=== PATIENT | female | born 1970 | race Caucasian/White ===

== ENCOUNTER 2016-10-30 20:51 | Emergency (ER) | payer BC, OTHER ==
[2016-10-30 21:32] VITALS: BP 129/89
[2016-10-30] MEDS ORDERED: Ketorolac 30 MG/ML SDV IM ONE (21:43)
--- NOTE | 2016-10-30 21:48 | EDM.PDOC ---
ED HPI GENERAL MEDICAL PROBLEM - General Chief Complaint: Back Pain or Injury Stated Complaint: back pain [id number] Time Seen by Provider: 10/30/16 21:44 Source of Information: Reports: Patient History Limitations: Reports: No Limitations - History of Present Illness INITIAL COMMENTS - FREE TEXT/NARRATIVE: strain low back last week been to [facility] was doing fine, tonight only reached out for bag of chips and sharp pain into her low back without going down her legs. 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 ED EXAM,LOWER BACK PAIN/INJURY - Physical Exam Exam: See Below Exam Limited By: No Limitations General Appearance: Alert, WD/WN, Mild Distress, Other (LBP) Ears: Hearing Grossly Normal Throat/Mouth: Normal Voice, No Airway Compromise Head: Atraumatic Neck: Non-Tender, Full Range of Motion Respiratory/Chest: No Respiratory Distress Cardiovascular: Regular Rate, Rhythm GI/Abdominal: Soft, Non-Tender Back Exam: Muscle Spasm, Paraspinal Tenderness, Other (bilat LS pararvert without sciatica, gait limited to pain) Neurological: Alert, No Motor/Sensory Deficits, Oriented x 3 Psychiatric: Tearful Skin Exam: Warm, Dry, Normal Color Lymphatic: No Adenopathy Course - Vital Signs Last Recorded V/S: Last Vital Signs Temp 36.8 C 10/30/16 21:05 Pulse 86 10/30/16 21:05 Resp 16 10/30/16 21:05 BP 129/89 10/30/16 21:05 Pulse Ox 97 10/30/16 21:05 - Orders/Labs/Meds Orders: Active Orders 24 hr Category Date Time Status Orphenadrine [Norflex] Med 10/30/16 23:00 Active 60 mg IM Q12H Medication Orders Orphenadrine Citrate (Norflex) 60 mg IM Q12H [facility] Last Admin: 10/30/16 22:59 Dose: 60 mg Meds: Medications Generic Name Dose Route Start Last Admin Trade Name Freq PRN Reason Stop Dose Admin Orphenadrine Citrate 60 mg 10/30/16 23:00 10/30/16 22:59 Norflex IM 60 mg Q12H [facility] Administration Discontinued Medications Generic Name Dose Route Start Last Admin Trade Name Freq PRN Reason Stop Dose Admin Butorphanol Tartrate 2 mg 10/30/16 22:14 10/30/16 22:22 Stadol IM 10/30/16 22:15 2 mg ONETIME ONE Administration Ketorolac Tromethamine 30 mg 10/30/16 21:43 10/30/16 21:52 Toradol IM 10/30/16 21:44 30 mg ONETIME ONE Administration Promethazine HCl 25 mg 10/30/16 22:14 10/30/16 22:22 Phenergan IM 10/30/16 22:15 25 mg ONETIME ONE Administration - Re-Assessments/Exams Free Text/Narrative Re-Assessment/Exam: 10/30/16 23:37 re-exam s/p IM Rx = much better now. Departure - Departure Time of Disposition: 23:37 Disposition: Home, Self-Care 01 Condition: Good Clinical Impression: Lumbosacral dysfunction - Discharge Information Instructions: Muscle Strain, [id number] Forms: ED Department Discharge Additional Instructions: 1) avoid bending lifting straining 2) try ice or heat to sore areas 3) follow up at clinic or recheck as needed rx given; flexeril 10mg bid prn x 12 vicodin 5/325mg bid prn x 12 - My Orders Last 24 Hours: My Active Orders 10/30/16 23:00 Orphenadrine [Norflex] 60 mg IM Q12H - Assessment/Plan Last 24 Hours: My Active Orders 10/30/16 23:00 Orphenadrine [Norflex] 60 mg IM Q12H
[2016-10-30] MEDS ORDERED: Promethazine 25 MG/ML SDV IM ONE (22:14)
[2016-10-30] MEDS ORDERED: Butorphanol 2 MG/ML SDV IM ONE (22:14)
[2016-10-30] MEDS ORDERED: Acetaminophen/HYDROcodone 325-10 MG Tab ONE (23:42)
== END 2016-10-30 23:55 | disposition home or self-care (01) ==
LOC: DL.ED 20:51
DX: M53.87 Other specified dorsopathies, lumbosacral region (principal); F41.9 Anxiety disorder, unspecified; F32.9 Major depressive disorder, single episode, unspecified; F17.210 Nicotine dependence, cigarettes, uncomplicated; Z79.899 Other long term (current) drug therapy; Z90.710 Acquired absence of both cervix and uterus
CPT/HCPCS: 96372; 99283; J0595; J1885; J2360; J2550

== ENCOUNTER 2017-03-09 17:06 | Emergency (ER) | payer OTHER ==
--- NOTE | 2017-03-09 17:14 | EDM.PDOCBH ---
<Arvind Jones - Last Filed: 03/09/17 19:00> ED HPI GENERAL MEDICAL PROBLEM - General Chief Complaint: Behavioral/Psych Stated Complaint: SUICIDAL [id number] Time Seen by Provider: 03/09/17 17:13 Source of Information: Reports: Patient, Family, Old Records, RN, RN Notes Reviewed History Limitations: Reports: No Limitations - History of Present Illness INITIAL COMMENTS - FREE TEXT/NARRATIVE: Arrives from home by POV with c/o suicidal thoughts and plan (overdose). Pt reports a long Hx of severe depression and prior suicidal thoughts requiring inpt. psychiatric hospitalization, last inpt. stay approx. 2 years ago. Pt reports multiple stress sources including currently going through a divorce, 2 teenage sons, financial problems, and job stress. She recently quit smoking and started Chantix. She called her psychiatrist today and he told her to stop Chantix and go to the ER if she was feeling suicidal. Onset: Gradual Duration: Week(s): (2-3), Constant, Getting Worse Severity: Severe Improves with: Reports: None Worsens with: Reports: None Associated Symptoms: Reports: No Other Symptoms - Related Data Allergies Allergy/AdvReac Type Severity Reaction Status Date / Time No Known Allergies Allergy Verified 03/09/17 17:14 Home Meds: Home Meds ALPRAZolam [Alprazolam] 1 tab PO BID PRN 10/30/16 [History] Ibuprofen [Motrin] 600 mg PO Q8H PRN 10/30/16 [History] PARoxetine HCl [Paroxetine HCl] 1 tab PO DAILY 10/30/16 [History] Varenicline Tartrate [Chantix] 1 tab PO ASDIRECTED 03/09/17 [History] Past Medical History - Past Health History Medical/Surgical History: Denies 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 Musculoskeletal History: Reports: Back Pain, Chronic Psychiatric History: Reports: Anxiety, Depression, Psych Hospitalization(s), Suicidal Ideation - Past Surgical History Female Surgical History: Reports: Hysterectomy Social & Family History - Family History Family Medical History: Noncontributory - Tobacco Use Smoking Status *Q: Current Every Day Smoker Years of Tobacco use: 20 Packs/Tins Daily: 0.5 Second Hand Smoke Exposure: Yes - Caffeine Use Caffeine Use: Reports: Coffee, Soda - Recreational Drug Use Recreational Drug Use: No - Living Situation & Occupation Living situation: Reports: (currently ), with Family Occupation: Employed ED ROS GENERAL - Review of Systems Review Of Systems: ROS reveals no pertinent complaints other than HPI. ED EXAM, BEHAVIORAL HEALTH - Physical Exam Exam: See Below Exam Limited By: No Limitations General Appearance: Alert, WD/WN, No Apparent Distress, Anxious, Other (tearful) Eye Exam: Bilateral Eye: EOMI, Normal Inspection, PERRL Ears: Normal External Exam, Hearing Grossly Normal Nose: Normal Inspection Throat/Mouth: Normal Inspection, Normal Lips, Normal Voice, No Airway Compromise Head: Atraumatic, Normocephalic Neck: Normal Inspection, Supple, Non-Tender, Full Range of Motion Respiratory/Chest: No Respiratory Distress, Lungs Clear, Normal Breath Sounds, No Accessory Muscle Use, Chest Non-Tender Cardiovascular: Normal Peripheral Pulses, Regular Rate, Rhythm, No Edema, No Gallop, No JVD, No Murmur, No Rub GI/Abdominal: Normal Bowel Sounds, Soft, Non-Tender (Female) Exam: Deferred Rectal (Female) Exam: Deferred Back Exam: Normal Inspection Extremities: Normal Inspection Neurological: Alert, Normal Mood/Affect, CN II-XII Intact, Normal Cognition, Normal Gait, No Motor/Sensory Deficits, Oriented x 3 Psychiatric: Depressed Mood, Flat Affect, Tearful, Suicidal Plan, Suicidal Thoughts. No: Homicidal Thoughts, Buddhist Delusions, Tangential Thoughts, Auditory Hallucinations, Visual Hallucinations, Grandiose Thoughts, Paranoid Thoughts, Threatening Behavior Skin Exam: Warm, Dry, Intact, Normal color, No rash COURSE, BEHAVIORAL HEALTH COMP - Course Vital Signs: Last Vital Signs Temp 36.6 C 03/09/17 17:12 Pulse 62 03/09/17 17:12 Resp 16 03/09/17 17:12 BP 144/95 H 03/09/17 17:12 Pulse Ox 100 03/09/17 17:12 Orders, Labs, Meds: Active Orders 24 hr Category Date Time Status ACETAMINOPHEN [CHEM] Stat Lab 03/09/17 17:14 Ordered CBC WITH AUTO DIFF [HEME] Stat Lab 03/09/17 17:14 Ordered COMPREHENSIVE METABOLIC PN,CMP [CHEM] Stat Lab 03/09/17 17:14 Ordered DRUG SCREEN URINE BIORAD [URCHEM] Stat Lab 03/09/17 17:14 Uncollected Suicide Precautions [OM.PC] Routine Oth 03/09/17 17:16 Ordered Laboratory Tests 03/09/17 03/09/17 03/09/17 Range/Units 17:23 17:23 17:23 WBC (5.0-10.0) 10^3/uL RBC (4.2-5.4) 10^6/uL Hgb (12.0-16.0) g/dL Hct (37.0-47.0) % MCV (80-100) fL MCH (27.0-34.0) pg MCHC (33.0-35.0) g/dL Plt Count (150-450) 10^3/uL Neut % (Auto) (42.2-75.2) % Lymph % (Auto) (20.5-50.1) % [place] % (Auto) (2-8) % Eos % (Auto) (1.0-3.0) % Baso % (Auto) (0.0-1.0) % Sodium (135-145) mmol/L Potassium (3.6-5.0) mmol/L Chloride (101-111) mmol/L Carbon Dioxide (21.0-31.0) mmol/L Anion Gap BUN (7-18) mg/dL Creatinine (0.6-1.3) mg/dL Est Cr Clr Drug Dosing mL/min Estimated GFR (MDRD) BUN/Creatinine Ratio Glucose (74-105) mg/dL Calcium (8.4-10.2) mg/dl Magnesium (1.8-2.5) mg/dL Total Bilirubin (0.2-1.0) mg/dL AST (10-42) IU/L ALT (10-60) IU/L Alkaline Phosphatase (42-121) IU/L Total Protein (6.7-8.2) g/dl Albumin (3.2-5.5) g/dl Globulin Albumin/Globulin Ratio TSH, Ultra Sensitive (0.45-5.33) uIu/mL Urine Color Light yellow (YELLOW) Urine Appearance Slightly cloudy (CLEAR) Urine pH 6.0 (5.0-9.0) Ur Specific [place] 1.010 (1.005-1.030) Urine Protein Negative (NEGATIVE) Urine Glucose (UA) Negative (NEGATIVE) Urine Ketones Negative (NEGATIVE) Urine Occult Blood Small H (NEGATIVE) Urine Nitrite Negative (NEGATIVE) Urine Bilirubin Negative (NEGATIVE) Urine Urobilinogen 0.2 (0.2-1.0) mg/dL Ur Leukocyte Esterase Negative (NEGATIVE) Urine RBC 0-5 /HPF Urine WBC 0-5 (0-5/HPF) /HPF Ur Epithelial Cells Moderate H /HPF Urine Bacteria Few (0-FEW/HPF) /HPF Urine Mucus Rare /LPF Urine HCG, Qual Negative Salicylates Urine Opiates Screen Negative (NEGATIVE) Ur Oxycodone Screen Negative (NEGATIVE) Urine Methadone Screen Negative (NEGATIVE) Acetaminophen Ur Barbiturates Screen Negative (NEGATIVE) U Tricyclic Antidepress Negative (NEGATIVE) Ur Phencyclidine Scrn Negative (NEGATIVE) Ur Amphetamine Screen Negative (NEGATIVE) U Methamphetamines Scrn Negative (NEGATIVE) Urine MDMA Screen Negative (NEGATIVE) U Benzodiazepines Scrn Negative (NEGATIVE) Urine Cocaine Screen Negative (NEGATIVE) U Marijuana (THC) Screen Negative (NEGATIVE) Ethyl Alcohol mg/dL 03/09/17 03/09/17 03/09/17 Range/Units 17:29 17:29 17:29 WBC 8.9 (5.0-10.0) 10^3/uL RBC 4.75 (4.2-5.4) 10^6/uL Hgb 14.0 (12.0-16.0) g/dL Hct 41.2 (37.0-47.0) % MCV 86.7 (80-100) fL MCH 29.5 (27.0-34.0) pg MCHC 34.0 (33.0-35.0) g/dL Plt Count 282 (150-450) 10^3/uL Neut % (Auto) 59.6 (42.2-75.2) % Lymph % (Auto) 28.4 (20.5-50.1) % [place] % (Auto) 8.8 H (2-8) % Eos % (Auto) 2.5 (1.0-3.0) % Baso % (Auto) 0.7 (0.0-1.0) % Sodium 135 (135-145) mmol/L Potassium 3.8 (3.6-5.0) mmol/L Chloride 102 (101-111) mmol/L Carbon Dioxide 24.0 (21.0-31.0) mmol/L Anion Gap 12.8 BUN 14 (7-18) mg/dL Creatinine 1.0 (0.6-1.3) mg/dL Est Cr Clr Drug Dosing 82.85 mL/min Estimated GFR (MDRD) > 60 BUN/Creatinine Ratio 14.00 Glucose 95 (74-105) mg/dL Calcium 8.8 (8.4-10.2) mg/dl Magnesium 1.8 (1.8-2.5) mg/dL Total Bilirubin 0.6 (0.2-1.0) mg/dL AST 23 (10-42) IU/L ALT 14 (10-60) IU/L Alkaline Phosphatase 52 (42-121) IU/L Total Protein 7.4 (6.7-8.2) g/dl Albumin 4.4 (3.2-5.5) g/dl Globulin 3.0 Albumin/Globulin Ratio 1.47 TSH, Ultra Sensitive 1.26 (0.45-5.33) uIu/mL Urine Color (YELLOW) Urine Appearance (CLEAR) Urine pH (5.0-9.0) Ur Specific [place] (1.005-1.030) Urine Protein (NEGATIVE) Urine Glucose (UA) (NEGATIVE) Urine Ketones (NEGATIVE) Urine Occult Blood (NEGATIVE) Urine Nitrite (NEGATIVE) Urine Bilirubin (NEGATIVE) Urine Urobilinogen (0.2-1.0) mg/dL Ur Leukocyte Esterase (NEGATIVE) Urine RBC /HPF Urine WBC (0-5/HPF) /HPF Ur Epithelial Cells /HPF Urine Bacteria (0-FEW/HPF) /HPF Urine Mucus /LPF Urine HCG, Qual Salicylates < 4 Urine Opiates Screen (NEGATIVE) Ur Oxycodone Screen (NEGATIVE) Urine Methadone Screen (NEGATIVE) Acetaminophen < 10 Ur Barbiturates Screen (NEGATIVE) U Tricyclic Antidepress (NEGATIVE) Ur Phencyclidine Scrn (NEGATIVE) Ur Amphetamine Screen (NEGATIVE) U Methamphetamines Scrn (NEGATIVE) Urine MDMA Screen (NEGATIVE) U Benzodiazepines Scrn (NEGATIVE) Urine Cocaine Screen (NEGATIVE) U Marijuana (THC) Screen (NEGATIVE) Ethyl Alcohol 5 mg/dL Medical Clearance: 03/09/17 19:00 Pt medically cleared for admission to inpt. psychiatric facility. Discharge vs Psych Eval/Treatment:: 03/09/17 19:01 Pt is actively suicidal, plan for transfer to inpt. psychiatric hospital at [facility]. Acceptance pending. If unavailable will try [facility]. 03/09/17 19:03 Care of pt transferred to E[facility] ABBOTT at 1900HR shift change. Departure - Departure Disposition: DC/Tfer to Acute Hospital 02 Condition: Serious Clinical Impression: Suicidal thoughts, Has access to planned means of suicide, Depressive disorder , Anxiety - Discharge Information Forms: Interfacility Transfer EMTALA Care Plan Goals: The lab, assessment and history information was sent to [facility] in [place]. Dr Ferrer accepted patient for continued evaluation and treatment. The patient will be transported by private vehicle. <Erich Lyn M - Last Filed: 03/09/17 21:00> Departure - Departure Time of Disposition: 20:57
[2017-03-09 17:57] LABS: CHLORIDE,CL 102 mmol/L (101-111); SODIUM,NA 135 mmol/L (135-145)
[2017-03-09 18:03] LABS: ACETAMINOPHEN < 10
[2017-03-09 21:01] VITALS: BP 139/94
== END 2017-03-09 21:03 ==
LOC: DL.ED 17:06
DX: F32.9 Major depressive disorder, single episode, unspecified (principal); F41.9 Anxiety disorder, unspecified; R45.851 Suicidal ideations; F17.210 Nicotine dependence, cigarettes, uncomplicated; Z79.899 Other long term (current) drug therapy
CPT/HCPCS: 36415; 80053; 80305; 81001; 81025; 83735; 84443; 85025; 99285; G0480

== ENCOUNTER 2019-04-28 13:51 | Emergency (ER) | payer OTHER ==
[2019-04-28 14:57] VITALS: BP 149/98; PULSE 99
--- NOTE | 2019-04-28 16:37 | EDM.PDOC ---
Scribed by Monisha Dunn 04/28/19 [id number] for Abby Troncoso NP ED HPI GENERAL MEDICAL PROBLEM - General Chief Complaint: General Stated Complaint: COLD THAT IS MOVING INTO LUNGS Time Seen by Provider: 04/28/19 16:21 Source of Information: Reports: Patient, RN, RN Notes Reviewed History Limitations: Reports: No Limitations - History of Present Illness INITIAL COMMENTS - FREE TEXT/NARRATIVE: Patient is a 48-year-old female who presents to ED with complaint of sinus pressure and nonproductive cough and chest congestion for 1 month. She has been treated with Amoxicillin and Z-JAYCE which she finished prior to this ER visit. She denies any fever, shortness of breath, chest pain, palpations, left swelling but does have chills. She takes Mucinex for her cough and DayQuil for congestion with moderate relief. No history of asthma. No tobacco abuse. Onset: Gradual Duration: Constant Quality: Reports: Ache Severity: Mild Improves with: Reports: None Associated Symptoms: Reports: No Other Symptoms - Related Data Allergies Allergy/AdvReac Type Severity Reaction Status Date / Time No Known Allergies Allergy Verified 04/28/19 14:44 Home Meds: Home Meds Ibuprofen [Motrin] 600 mg PO Q8H PRN 10/30/16 [History] PARoxetine HCl [Paroxetine HCl] 20 mg PO DAILY 10/30/16 [History] Cyclobenzaprine [Flexeril] 10 mg PO TID PRN 04/28/19 [History] Omeprazole Magnesium [Prilosec Otc] 20 mg PO DAILY 04/28/19 [History] QUEtiapine [SEROquel] 150 mg PO DAILY 04/28/19 [History] buPROPion [Wellbutrin] 300 mg PO DAILY 04/28/19 [History] guaiFENesin [Mucinex] 600 mg PO BID 04/28/19 [History] Past Medical History - Past Health History Medical/Surgical History: Denies Medical/Surgical History HEENT History: Reports: None Cardiovascular History: Reports: None Respiratory History: Reports: None Gastrointestinal History: Reports: None Genitourinary History: Reports: None 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 Musculoskeletal History: Reports: Back Pain, Chronic Neurological History: Reports: None Psychiatric History: Reports: Anxiety, Depression, Psych Hospitalization(s), Suicidal Ideation Endocrine/Metabolic History: Reports: None Hematologic History: Reports: None Immunologic History: Reports: None Oncologic (Cancer) History: Reports: None Dermatologic History: Reports: None - Infectious Disease History Infectious Disease History: Reports: Chicken Pox - Past Surgical History HEENT Surgical History: Reports: None Cardiovascular Surgical History: Reports: None Respiratory Surgical History: Reports: None GI Surgical History: Reports: Appendectomy Female Surgical History: Reports: Hysterectomy Endocrine Surgical History: Reports: None Neurological Surgical History: Reports: None Oncologic Surgical History: Reports: None Dermatological Surgical History: Reports: None Social & Family History - Family History Family Medical History: Noncontributory - Tobacco Use Smoking Status *Q: Never Smoker - Caffeine Use Caffeine Use: Reports: Coffee - Recreational Drug Use Recreational Drug Use: No - Living Situation & Occupation Living situation: Reports: (currently ), with Family Occupation: Employed ED ROS GENERAL - Review of Systems Review Of Systems: Comprehensive ROS is negative, except as noted in HPI. ED EXAM, GENERAL - Physical Exam Exam: See Below Exam Limited By: No Limitations General Appearance: Alert, WD/WN, No Apparent Distress Ears: Normal External Exam, Normal Canal, Hearing Grossly Normal, Normal TMs Nose: Normal Inspection, Normal Mucosa, No Blood Throat/Mouth: Normal Inspection, Normal Lips, Normal Teeth, Normal Gums, Normal Oropharynx, Normal Voice, No Airway Compromise Head: Atraumatic, Normocephalic Neck: Normal Inspection, Supple, Non-Tender, Full Range of Motion Respiratory/Chest: No Respiratory Distress, Lungs Clear, Normal Breath Sounds, No Accessory Muscle Use, Chest Non-Tender Cardiovascular: Normal Peripheral Pulses, Regular Rate, Rhythm, No Edema, No Gallop, No JVD, No Murmur, No Rub GI/Abdominal: Normal Bowel Sounds, Soft, Non-Tender, No Organomegaly, No Distention, No Abnormal Bruit, No Mass Lymphatic: No Adenopathy Course - Vital Signs Last Recorded V/S: Last Vital Signs Temp 97.9 F 04/28/19 14:52 Pulse 99 04/28/19 14:52 Resp 20 04/28/19 14:52 BP 149/98 H 04/28/19 14:52 Pulse Ox 97 04/28/19 14:52 - Orders/Labs/Meds Orders: Active Orders 24 hr Category Date Time Status Chest 2V [CR] Urgent Exams 04/28/19 14:48 Taken CULTURE STREP A CONFIRMATION [RM] Stat Lab 04/28/19 14:39 Results STREP SCRN A RAPID W CULT CONF [RM] Stat Lab 04/28/19 14:39 Results Labs: Rapid strep: Negative. Influenza A and B: Negative. - Radiology Interpretation Free Text/Narrative:: Chest x-ray: No acute findings. See rad report. - Re-Assessments/Exams Free Text/Narrative Re-Assessment/Exam: Exam and lab, and chest x-ray findings reviewed with patient. Encourage her to keep pushing fluids. Netti pot rinses. Tylenol and Ibuprofen p.r.n.for discomfort. Try humidifier. Follow up with PCP in the clinic. Departure - Departure Time of Disposition: 16:35 Disposition: Home, Self-Care 01 Condition: Good Clinical Impression: Upper respiratory infection Qualifiers: URI type: unspecified URI Qualified Code(s): J06.9 - Acute upper respiratory infection, unspecified - Discharge Information Instructions: Upper Respiratory Infection, Adult, [id number] Forms: ED Department Discharge Additional Instructions: Encourage her to keep pushing fluids. Netti pot rinses. Tylenol and Ibuprofen p.r.n.for discomfort. Try humidifier. Follow up with PCP in the clinic. Sepsis Event Note - Evaluation Sepsis Screening Result: No Definite Risk - Focused Exam Vital Signs: Vital Signs Temp Pulse Resp BP Pulse Ox 04/28/19 14:52 97.9 F 99 20 149/98 H 97 Date Exam was Performed: 04/28/19 Time Exam was Performed: 16:36 - My Orders Last 24 Hours: My Active Orders 04/28/19 14:39 CULTURE STREP A CONFIRMATION [RM] Stat STREP SCRN A RAPID W CULT CONF [RM] Stat 04/28/19 14:48 Chest 2V [CR] Urgent - Assessment/Plan Last 24 Hours: My Active Orders 04/28/19 14:39 CULTURE STREP A CONFIRMATION [RM] Stat STREP SCRN A RAPID W CULT CONF [RM] Stat 04/28/19 14:48 Chest 2V [CR] Urgent I have read and agree with the documentation that has been completed regarding this visit. By signing this record, I attest that the documentation was completed in my physical presence and is an accurate record of the encounter.
== END 2019-04-28 16:41 | disposition home or self-care (01) ==
LOC: DL.ED 13:51
DX: J06.9 Acute upper respiratory infection, unspecified (principal); F41.9 Anxiety disorder, unspecified; F32.9 Major depressive disorder, single episode, unspecified; Z79.899 Other long term (current) drug therapy
CPT/HCPCS: 71046; 87081; 87430; 87804; 99283-25